=== PATIENT | female | born 1995 | race Caucasian/White ===

== ENCOUNTER 2016-08-18 20:03 | Emergency (ER) | payer OTHER, BC, SELFPAY ==
[2016-08-18 21:02] VITALS: BP 111/56; PULSE 77; O2SAT 99
--- NOTE | 2016-08-18 21:21 | ERPHSYRPT ---
- History of Present Illness Time Seen by Provider: 08/18/16 21:13 Historian: patient Exam Limitations: no limitations Patient Subjective Stated Complaint: pt states she has been having epigastric pain Triage Nursing Assessment: pt alert and oriented, answers questions approp. pt ambulatory with steady gait ntoed. respirations nonlabored with lungs cta. abd soft and nontender with bowel sounds to all 4 quads. Physician History: The patient is a 21-year-old female with her complaining of epigastric pain began this morning. It began before she had breakfast. Later in the day she took a Vicodin from her mother and then she started to have vomiting. She had her gallbladder removed several months ago. She states the pain is similar to what it was when she had gall stones. She also had a done recently and an appendectomy. She denies alcohol consumption. Timing/Duration: today Activities at Onset: none Quality: sharpness Abdominal Pain Onset Location: epigastric Pain Radiation: no radiation Severity of Pain-Max: moderate Severity of Pain-Current: moderate Modifying Factors: Improves With: analgesics, vomiting Associated Symptoms: nausea, vomiting Previous symptoms: same symptoms as today Allergies/Adverse Reactions: No Known Drug Allergies Allergy (Verified 09/11/15 18:43) Home Medications: Ranitidine HCl [Zantac] 150 mg PO DAILY 08/18/16 [History] Hx Tetanus, Diphtheria Vaccination/Date Given: No Hx Influenza Vaccination/Date Given: No Hx Pneumococcal Vaccination/Date Given: No Immunizations Up to Date: No - Review of Systems Constitutional: No Fever, No Chills Eyes: No Symptoms Ears, Nose, & Throat: No Symptoms Respiratory: No Cough, No Dyspnea Cardiac: No Chest Pain, No Edema, No Syncope Abdominal/Gastrointestinal: Abdominal Pain, Nausea, Vomiting, No Diarrhea Genitourinary Symptoms: No Dysuria Musculoskeletal: No Back Pain, No Neck Pain Skin: No Rash Neurological: No Dizziness, No Focal Weakness, No Sensory Changes Psychological: No Symptoms Endocrine: No Symptoms Hematologic/Lymphatic: No Symptoms Immunological/Allergic: No Symptoms All Other Systems: Reviewed and Negative - Past Medical History Pertinent Past Medical History: Yes Neurological History: Migraines ENT History: No Pertinent History Cardiac History: No Pertinent History Respiratory History: No Pertinent History Endocrine Medical History: No Pertinent History Musculoskeletal History: No Pertinent History GI Medical History: No Pertinent History History: No Pertinent History Psycho-Social History: No Pertinent History Female Reproductive Disorders: No Pertinent History Other Medical History: infection during , took daughter at 29 weeks - Past Surgical History Past Surgical History: Yes Gastrointestinal: Appendectomy, Cholecystectomy Female Surgical History: Section - Social History Smoking Status: Never smoker Exposure to second hand smoke: No Drug Use: none Patient Lives Alone: No - Female History Hx Last Menstrual Period: 08/01/16 - Nursing Vital Signs Nursing Vital Signs: Initial Vital Signs Temperature 98.9 F Temperature Source Oral Pulse Rate 77 Respiratory Rate 18 Blood Pressure [Right Arm] 111/56 Pain Intensity 10 - Physical Exam General Appearance: no apparent distress, alert Eye Exam: PERRL/EOMI, eyes nml inspection Ears, Nose, Throat Exam: normal ENT inspection, pharynx normal, moist mucous membranes Neck Exam: normal inspection, non-tender, supple, full range of motion Respiratory Exam: normal breath sounds, lungs clear, No respiratory distress Cardiovascular Exam: regular rate/rhythm, normal heart sounds Gastrointestinal/Abdomen Exam: tenderness (epigastric area) Pelvic Exam: not done Rectal Exam: not done Back Exam: normal inspection, normal range of motion, No CVA tenderness, No vertebral tenderness Extremity Exam: normal inspection, normal range of motion, pelvis stable Neurologic Exam: alert, oriented x 3, cooperative, normal mood/affect, nml cerebellar function, sensation nml, No motor deficits Skin Exam: normal color, warm, dry SpO2 Interpretation: normal SpO2: 99 Oxygen Delivery: Room Air - Radiology Exams Abdomen X-ray Interpretation: Interpreted by me, Negative (neg chest, nonobstructed abd) Ordered Tests: Active Orders 24 hr Category Date Time Status IV Insertion STAT Care 08/18/16 21:24 Active OBSTR/ACUTE ABDOMEN SERIES Stat Exams 08/18/16 21:25 Ordered CBC W DIFF Stat Lab 08/18/16 20:45 Completed CMP Stat Lab 08/18/16 20:45 Completed HCG QUALITATIVE,SERUM Stat Lab 08/18/16 20:45 Completed LIPASE Stat Lab 08/18/16 20:45 Completed Lactic Acid Stat Lab 08/18/16 21:30 Completed UA W/RFX UR CULTURE Stat Lab 08/18/16 20:45 Completed Medication Summary Discontinued Medications Generic Name Dose Route Start Last Admin Trade Name Freq PRN Reason Stop Dose Admin Sodium Chloride 1,000 mls @ 999 mls/hr 08/18/16 21:24 07/05/17 21:31 Sodium Chloride 0.9% 1000 Ml IV 08/18/16 22:24 999 mls/hr .Q1H1M STA Administration Sodium Chloride Confirm 08/18/16 21:29 Sodium Chloride 0.9% 1000 Ml Administered 08/18/16 21:30 Dose 1,000 mls @ ud .ROUTE .STK-MED ONE Ketorolac Tromethamine 30 mg 08/18/16 21:24 08/18/16 21:31 Toradol 30 Mg Injection IV 08/18/16 21:25 30 mg STAT ONE Administration Ketorolac Tromethamine Confirm 08/18/16 21:29 Toradol 30 Mg Injection Administered 08/18/16 21:30 Dose 30 mg .ROUTE .STK-MED ONE Ondansetron HCl 4 mg 08/18/16 21:24 08/18/16 21:31 Zofran 4 Mg/2 Ml Vial IV 08/18/16 21:25 4 mg STAT ONE Administration Ondansetron HCl Confirm 08/18/16 21:29 Zofran 4 Mg/2 Ml Vial Administered 08/18/16 21:30 Dose 4 mg .ROUTE .STK-MED ONE Lab/Rad Data: Laboratory Result Diagrams 08/18/16 20:45 08/18/16 20:45 Laboratory Results 08/18/16 08/18/16 08/18/16 Range/Units 21:30 20:45 20:45 WBC (4.0-10.5) K/mm3 RBC (4.1-5.4) M/mm3 Hgb (12.0-16.0) gm/dl Hct (35-47) % MCV (78-100) fl MCH (26-32) pg MCHC (32-36) g/dl RDW (11.5-14.0) % Plt Count (150-450) K/mm3 MPV (6-9.5) fl Gran % (36.0-66.0) % Lymphocytes % (24.0-44.0) % Monocytes % (0.0-12.0) % Eosinophils % (0.00-5.0) % Basophils % (0.0-0.4) % Basophils # (0-0.4) Sodium (136-145) mEq/L Potassium (3.5-5.1) mEq/L Chloride (98-107) mEq/L Carbon Dioxide (21-32) mEq/L Anion Gap (5-15) MEQ/L BUN (9-20) mg/dL Creatinine (0.55-1.30) mg/dl Estimated GFR ML/MIN Glucose (70-110) MG/DL Lactic Acid 1.8 (0.4-2.0) Calcium (8.5-10.1) mg/dL Total Bilirubin (0.2-1.0) mg/dL AST (15-37) U/L ALT (12-78) U/L Alkaline Phosphatase (46-116) U/L Serum Total Protein (6.4-8.2) gm/dL Albumin (3.4-5.0) g/dL Lipase (73-393) U/L Serum , Qual NEGATIVE (Negative) Ur Collection Type CCMS Urine Color YELLOW (YELLOW) Urine Appearance CLEAR (CLEAR) Urine pH 5.0 (5-6) Ur Specific [place] 1.030 (1.005-1.025) Urine Protein NEGATIVE (Negative) Urine Ketones NEGATIVE (NEGATIVE) Urine Blood NEGATIVE (0-5) Izaiah/ul Urine Nitrite NEGATIVE (NEGATIVE) Urine Bilirubin NEGATIVE (NEGATIVE) Urine Urobilinogen NORMAL (0-1) mg/dL Ur Leukocyte Esterase NEGATIVE (NEGATIVE) Urine Glucose NEGATIVE (NEGATIVE) mg/dL Specimen Received 08-18-16 2145 08/18/16 08/18/16 Range/Units 20:45 20:45 WBC 7.2 (4.0-10.5) K/mm3 RBC 5.35 (4.1-5.4) M/mm3 Hgb 13.1 (12.0-16.0) gm/dl Hct 40.6 (35-47) % MCV 75.9 L (78-100) fl MCH 24.5 L (26-32) pg MCHC 32.3 (32-36) g/dl RDW 15.0 H (11.5-14.0) % Plt Count 258 (150-450) K/mm3 MPV 10.5 H (6-9.5) fl Gran % 76.7 H (36.0-66.0) % Lymphocytes % 15.5 L (24.0-44.0) % Monocytes % 7.7 (0.0-12.0) % Eosinophils % 0.0 (0.00-5.0) % Basophils % 0.1 (0.0-0.4) % Basophils # 0.01 (0-0.4) Sodium 140 (136-145) mEq/L Potassium 4.4 (3.5-5.1) mEq/L Chloride 103 (98-107) mEq/L Carbon Dioxide 28.0 (21-32) mEq/L Anion Gap 13.7 (5-15) MEQ/L BUN 9 (9-20) mg/dL Creatinine 0.82 (0.55-1.30) mg/dl Estimated GFR > 60 ML/MIN Glucose 103 (70-110) MG/DL Lactic Acid (0.4-2.0) Calcium 9.5 (8.5-10.1) mg/dL Total Bilirubin 0.70 (0.2-1.0) mg/dL AST 216 H (15-37) U/L ALT 151 H (12-78) U/L Alkaline Phosphatase 137 H (46-116) U/L Serum Total Protein 7.9 (6.4-8.2) gm/dL Albumin 4.2 (3.4-5.0) g/dL Lipase 138 (73-393) U/L Serum , Qual (Negative) Ur Collection Type Urine Color (YELLOW) Urine Appearance (CLEAR) Urine pH (5-6) Ur Specific [place] (1.005-1.025) Urine Protein (Negative) Urine Ketones (NEGATIVE) Urine Blood (0-5) Izaiah/ul Urine Nitrite (NEGATIVE) Urine Bilirubin (NEGATIVE) Urine Urobilinogen (0-1) mg/dL Ur Leukocyte Esterase (NEGATIVE) Urine Glucose (NEGATIVE) mg/dL Specimen Received - Progress Progress: improved Counseled pt/family regarding: lab results, diagnosis, need for follow-up, rad results - Departure Time of Disposition: 22:30 Departure Disposition: Home Clinical Impression: Abdominal pain, Nausea and vomiting, Elevated liver enzymes Condition: Stable Critical Care Time: No Additional Instructions: You had abdominal pain, nausea vomiting, and elevated liver enzymes. The AST was 216 and your ALT was 151. You were given 1 L of fluids and Zofran 4 mg IV in the ER. Take Zofran 4 mg ODT every 6 hours as needed for nausea and vomiting. Follow up tomorrow with Dr. Johnson for further evaluation of the elevated liver enzymes. Prescriptions: Ondansetron [Zofran Odt] 4 mg PO Q6HPRN PRN #10 tab.rapdis PRN Reason: Nausea/Vomiting
[2016-08-18] MEDS ORDERED: Zofran 4 MG/2 ML VIAL IV ONE (21:24)
[2016-08-18] MEDS ORDERED: Sodium Chloride 0.9% 1000 ML 1,000 ML IV STA (21:24)
[2016-08-18] MEDS ORDERED: TORAdol 30 mg Injection IV ONE (21:24)
[2016-08-18] MEDS ORDERED: Zofran 4 MG/2 ML VIAL ONE (21:29)
[2016-08-18] MEDS ORDERED: TORAdol 30 mg Injection ONE (21:29)
[2016-08-18] MEDS ORDERED: Sodium Chloride 0.9% 1000 ML 1,000 ML ONE (21:29)
[2016-08-18 21:32] LABS: BASOPHIL % 0.1 % (0.0-0.4); Granulocytes % 76.7 % (36.0-66.0); Lymphocytes % 15.5 % (24.0-44.0); Mean Cell Volume 75.9 fl (78-100); Mean Corpuscular Hemoglobin 24.5 pg (26-32); Mean Platelet Volume 10.5 fl (6-9.5); Monocytes % 7.7 % (0.0-12.0); Platelet Count 258 K/mm3 (150-450); Red Blood Count 5.35 M/mm3 (4.1-5.4); White Blood Count 7.2 K/mm3 (4.0-10.5)
[2016-08-18 21:45] LABS: Bilirubin NEGATIVE (NEGATIVE); Blood NEGATIVE Ery/ul (0-5); COMPLETE URINE MICROSCOPIC? NO; Collection Type CCMS; Glucose NEGATIVE (NEGATIVE); Leukocyte Esterase NEGATIVE (NEGATIVE)
[2016-08-18 21:46] LABS: ADD URINE CULTURE? NO (NO)
[2016-08-18 21:50] LABS: ALBUMIN 4.2 g/dL (3.4-5.0); ALKALINE PHOSPHATASE 137 U/L (46-116); ANION GAP 13.7 MEQ/L (5-15); BLOOD UREA NITROGEN 9 mg/dL (9-20); CHLORIDE 103 mEq/L (98-107); Glucose 103 MG/DL (70-110); LIPASE 138 U/L (73-393); Potassium 4.4 mEq/L (3.5-5.1); SGOT/AST 216 U/L (15-37); SGPT/ALT 151 U/L (12-78); SODIUM 140 mEq/L (136-145); Total Protein 7.9 gm/dL (6.4-8.2)
--- NOTE | 2016-08-19 08:32 | XRAY ---
Indication: Right upper quadrant pain and vomiting. Comparison: None 2 views of the abdomen nonacute and nonobstructed with mild scattered colonic fecal debris and cholecystectomy clips. Remaining solid organs and osseous structures unremarkable. Single frontal chest demonstrates normal heart, lungs, and bony thorax. Impression: Mild fecal stasis without obstruction. Normal 1 view chest.
== END 2016-08-18 22:42 | disposition home or self-care (01) ==
LOC: ED 20:03
DX: R10.9 Unspecified abdominal pain (principal); R11.2 Nausea with vomiting, unspecified; R74.8 Abnormal levels of other serum enzymes
CPT/HCPCS: 36000; 36415; 74022; 80053; 81002; 83605; 83690; 84703; 85025; 96360; 96374; 96375; 99283; J1885; J2405

== ENCOUNTER 2016-08-21 02:43 | Emergency (ER) | payer OTHER, BC, SELFPAY ==
[2016-08-21 02:55] VITALS: O2SAT 98
[2016-08-21] MEDS ORDERED: Zofran 4 MG/2 ML VIAL IV ONE ×2 (03:00→04:01)
[2016-08-21] MEDS ORDERED: MORPHINE SULFATE 4 MG INJ IV ONE (03:00)
[2016-08-21] MEDS ORDERED: PROTONIX 40 MG IV IV ONE ×2 (03:00→03:06)
[2016-08-21] MEDS ORDERED: Sodium Chloride 0.9% 1000 ML 1,000 ML IV STA ×2 (03:00→04:55)
[2016-08-21] MEDS ORDERED: Pepcid 20 MG VIAL IV ONE ×2 (03:00→03:06)
[2016-08-21] MEDS ORDERED: GI COCKTAIL 60ML (Belladonn/Phenobarb/Lidoc PO ONE (03:00)
[2016-08-21] MEDS ORDERED: Zofran 4 MG/2 ML VIAL ONE ×2 (03:06→04:01)
[2016-08-21] MEDS ORDERED: MORPHINE SULFATE 4 MG INJ ONE (03:07)
[2016-08-21] MEDS ORDERED: XYLOCAINE HCl Viscous ONE (03:07)
[2016-08-21] MEDS ORDERED: MAALOX ES 30 ML UNIT DOSE ONE (03:08)
[2016-08-21] MEDS ORDERED: Donnatol Liquid ONE (03:08)
[2016-08-21] MEDS ORDERED: Sodium Chloride 0.9% 1000 ML 1,000 ML ONE ×2 (03:08→04:42)
[2016-08-21 03:25] LABS: BASOPHIL % 0.4 % (0.0-0.4); Eosinophil % 1.2 % (0.00-5.0); Lymphocytes % 26.5 % (24.0-44.0); Mean Cell Volume 75.8 fl (78-100); Mean Corpuscular Hemoglobin 24.6 pg (26-32); Mean Platelet Volume 10.7 fl (6-9.5); Monocytes % 11.9 % (0.0-12.0); Platelet Count 257 K/mm3 (150-450); Red Blood Count 5.32 M/mm3 (4.1-5.4); Red Cell Distribution Width 15.1 % (11.5-14.0); White Blood Count 4.9 K/mm3 (4.0-10.5)
[2016-08-21 03:50] LABS: ALBUMIN 3.9 g/dL (3.4-5.0); ALKALINE PHOSPHATASE 286 U/L (46-116); ANION GAP 16.6 MEQ/L (5-15); BLOOD UREA NITROGEN 9 mg/dL (9-20); CHLORIDE 103 mEq/L (98-107); Carbon Dioxide 24.1 mEq/L (21-32); Glucose 103 MG/DL (70-110); Potassium 3.9 mEq/L (3.5-5.1); SGOT/AST 463 U/L (15-37); SGPT/ALT 741 U/L (12-78); SODIUM 140 mEq/L (136-145); Total Protein 7.7 gm/dL (6.4-8.2)
--- NOTE | 2016-08-21 04:06 | ERPHSYRPT ---
- History of Present Illness Time Seen by Provider: 08/21/16 04:04 Historian: patient, family Exam Limitations: no limitations Patient Subjective Stated Complaint: pt was seen in the er on 08/18 for upper abd pain followed up with dr perkins and then to see dr bruno she is to have a scope done on 08/27 but tonight she can't take the pain -she hasn't been able to eat since yesterday at 0300 and when she did she was nauseated -the pain feels like it did before she had her gallbladder removed no fever Triage Nursing Assessment: pt is awake and alert and able to answer questions crying with the pain Physician History: pt was seen in the er on 08/18 for upper abd pain followed up with dr perkins and then to see dr bruno she is to have a scope done on 08/27 but tonight she can't take the pain -she hasn't been able to eat since yesterday at 0300 and when she did she was nauseated -the pain feels like it did before she had her gallbladder removed no fever Timing/Duration: today Abdominal Pain Onset Location: epigastric Pain Radiation: no radiation Severity of Pain-Max: severe Severity of Pain-Current: severe Modifying Factors: Improves With: nothing Associated Symptoms: denies symptoms Previous symptoms: same symptoms as today Allergies/Adverse Reactions: No Known Drug Allergies Allergy (Verified 08/21/16 03:11) Home Medications: Ranitidine HCl [Zantac] 150 mg PO DAILY 08/18/16 [History] Hx Tetanus, Diphtheria Vaccination/Date Given: No Hx Influenza Vaccination/Date Given: No Hx Pneumococcal Vaccination/Date Given: No - Review of Systems Constitutional: No Fever, No Chills Eyes: No Symptoms Ears, Nose, & Throat: No Symptoms Respiratory: No Cough, No Dyspnea Cardiac: No Chest Pain, No Edema, No Syncope Abdominal/Gastrointestinal: Abdominal Pain, No Nausea, No Vomiting, No Diarrhea Genitourinary Symptoms: No Dysuria Musculoskeletal: No Back Pain, No Neck Pain Skin: No Rash Neurological: No Dizziness, No Focal Weakness, No Sensory Changes Psychological: No Symptoms Endocrine: No Symptoms All Other Systems: Reviewed and Negative - Past Medical History Pertinent Past Medical History: Yes Neurological History: Migraines ENT History: No Pertinent History Cardiac History: No Pertinent History Respiratory History: No Pertinent History Endocrine Medical History: No Pertinent History Musculoskeletal History: No Pertinent History GI Medical History: No Pertinent History History: No Pertinent History Psycho-Social History: No Pertinent History Female Reproductive Disorders: No Pertinent History Other Medical History: infection during , took daughter at 29 weeks - Past Surgical History Past Surgical History: Yes Gastrointestinal: Appendectomy, Cholecystectomy Female Surgical History: Section - Social History Smoking Status: Never smoker Exposure to second hand smoke: No Drug Use: none Patient Lives Alone: No - Female History Hx Last Menstrual Period: 08/01 - Nursing Vital Signs Nursing Vital Signs: Initial Vital Signs Temperature 98.5 F Temperature Source Oral Pulse Rate 82 Respiratory Rate 16 Blood Pressure [Right Arm] 114/64 Pain Intensity 6 - Physical Exam General Appearance: no apparent distress, alert Eye Exam: PERRL/EOMI, eyes nml inspection Ears, Nose, Throat Exam: normal ENT inspection, pharynx normal, moist mucous membranes Neck Exam: normal inspection, non-tender, supple, full range of motion Respiratory Exam: normal breath sounds, lungs clear, No respiratory distress Cardiovascular Exam: regular rate/rhythm, normal heart sounds Gastrointestinal/Abdomen Exam: soft, tenderness (epigastric), No mass Back Exam: normal inspection, normal range of motion, No CVA tenderness, No vertebral tenderness Extremity Exam: normal inspection, normal range of motion, pelvis stable Neurologic Exam: alert, oriented x 3, cooperative, normal mood/affect, nml cerebellar function, sensation nml, No motor deficits Skin Exam: normal color, warm, dry SpO2: 98 Oxygen Delivery: Room Air - Course Nursing assessment & vital signs reviewed: Yes Ordered Tests: Active Orders 24 hr Category Date Time Status IV Insertion STAT Care 08/21/16 03:56 Active ABDOMEN AND PELVIS W CONTRAST [CT] Stat Exams 08/21/16 04:29 Ordered AMYLASE Stat Lab 08/21/16 03:15 Completed CBC W DIFF Stat Lab 08/21/16 03:15 Completed CMP Stat Lab 08/21/16 03:15 Completed HCG QUALITATIVE,SERUM Stat Lab 08/21/16 03:15 Completed LIPASE Stat Lab 08/21/16 03:15 Completed Medication Summary Discontinued Medications Generic Name Dose Route Start Last Admin Trade Name Freq PRN Reason Stop Dose Admin Al Hydrox/Mg Hydrox/Simethicone Confirm 08/21/16 03:08 Maalox Es 30 Ml Unit Dose Administered 08/21/16 03:09 Dose 30 ml .ROUTE .STK-MED ONE Belladonna Alkaloids/Phenobarbital 60 ml 08/21/16 03:00 08/21/16 03:18 Gi Cocktail 60ml (Belladonn/Phenobarb/Lidoc* PO 08/21/16 03:01 60 ml STAT ONE Administration Belladonna Alkaloids/Phenobarbital Confirm 08/21/16 03:08 Donnatol Liquid Administered 08/21/16 03:09 Dose 64.8 mg .ROUTE .STK-MED ONE Famotidine 20 mg 08/21/16 03:00 08/21/16 03:17 Pepcid 20 Mg Vial IV 08/21/16 03:01 20 mg STAT ONE Administration Famotidine Confirm 08/21/16 03:06 Pepcid 20 Mg Vial Administered 08/21/16 03:07 Dose 20 mg IV .STK-MED ONE Fentanyl Citrate 50 mcg 08/21/16 04:33 08/21/16 04:38 Sublimaze 100 Mcg/2 Ml IV 08/21/16 04:34 50 mcg STAT ONE Administration Fentanyl Citrate Confirm 08/21/16 04:34 Sublimaze 100 Mcg/2 Ml Administered 08/21/16 04:35 Dose 100 mcg .ROUTE .STK-MED ONE Sodium Chloride 1,000 mls @ 999 mls/hr 08/21/16 03:00 08/21/16 03:17 Sodium Chloride 0.9% 1000 Ml IV 08/21/16 04:00 999 mls/hr .Q1H1M STA Administration Sodium Chloride Confirm 08/21/16 03:08 Sodium Chloride 0.9% 1000 Ml Administered 08/21/16 03:09 Dose 1,000 mls @ ud .ROUTE .STK-MED ONE Lidocaine HCl Confirm 08/21/16 03:07 Xylocaine Hcl Viscous * Administered 08/21/16 03:08 Dose 20 ml .ROUTE .STK-MED ONE Morphine Sulfate 4 mg 08/21/16 03:00 08/21/16 03:17 Morphine Sulfate 4 Mg Inj IV 08/21/16 03:01 4 mg STAT ONE Administration Morphine Sulfate Confirm 08/21/16 03:07 Morphine Sulfate 4 Mg Inj Administered 08/21/16 03:08 Dose 4 mg .ROUTE .STK-MED ONE Ondansetron HCl 4 mg 08/21/16 03:00 08/21/16 03:17 Zofran 4 Mg/2 Ml Vial IV 08/21/16 03:01 4 mg STAT ONE Administration Ondansetron HCl Confirm 08/21/16 03:06 Zofran 4 Mg/2 Ml Vial Administered 08/21/16 03:07 Dose 4 mg .ROUTE .STK-MED ONE Ondansetron HCl 4 mg 08/21/16 04:01 08/21/16 04:03 Zofran 4 Mg/2 Ml Vial IV 08/21/16 04:02 4 mg STAT ONE Administration Ondansetron HCl Confirm 08/21/16 04:01 Zofran 4 Mg/2 Ml Vial Administered 08/21/16 04:02 Dose 4 mg .ROUTE .STK-MED ONE Pantoprazole Sodium 40 mg 08/21/16 03:00 08/21/16 03:17 Protonix 40 Mg Iv IV 08/21/16 03:01 40 mg STAT ONE Administration Pantoprazole Sodium Confirm 08/21/16 03:06 Protonix 40 Mg Iv Administered 08/21/16 03:07 Dose 40 mg IV .STK-MED ONE Lab/Rad Data: Laboratory Result Diagrams 08/21/16 03:15 08/21/16 03:15 Laboratory Results 08/21/16 08/21/16 08/21/16 Range/Units 03:15 03:15 03:15 WBC 4.9 (4.0-10.5) K/mm3 RBC 5.32 (4.1-5.4) M/mm3 Hgb 13.1 (12.0-16.0) gm/dl Hct 40.3 (35-47) % MCV 75.8 L (78-100) fl MCH 24.6 L (26-32) pg MCHC 32.5 (32-36) g/dl RDW 15.1 H (11.5-14.0) % Plt Count 257 (150-450) K/mm3 MPV 10.7 H (6-9.5) fl Gran % 60.0 (36.0-66.0) % Lymphocytes % 26.5 (24.0-44.0) % Monocytes % 11.9 (0.0-12.0) % Eosinophils % 1.2 (0.00-5.0) % Basophils % 0.4 (0.0-0.4) % Basophils # 0.02 (0-0.4) Sodium 140 (136-145) mEq/L Potassium 3.9 (3.5-5.1) mEq/L Chloride 103 (98-107) mEq/L Carbon Dioxide 24.1 (21-32) mEq/L Anion Gap 16.6 H (5-15) MEQ/L BUN 9 (9-20) mg/dL Creatinine 1.04 (0.55-1.30) mg/dl Estimated GFR > 60 ML/MIN Glucose 103 (70-110) MG/DL Calcium 9.3 (8.5-10.1) mg/dL Total Bilirubin 3.10 H (0.2-1.0) mg/dL AST 463 H (15-37) U/L ALT 741 H (12-78) U/L Alkaline Phosphatase 286 H (46-116) U/L Serum Total Protein 7.7 (6.4-8.2) gm/dL Albumin 3.9 (3.4-5.0) g/dL Amylase 1104 H (25-115) U/L Lipase 20754 H (73-393) U/L Serum , Qual NEGATIVE (Negative) - Progress Progress: improved, pain not gone completely Counseled pt/family regarding: lab results, diagnosis, need for follow-up - Departure Time of Disposition: 04:42 Departure Disposition: Transfer ([facility]) Clinical Impression: Elevated liver enzymes, Pancreatitis due to biliary obstruction Abdominal pain Qualifiers: Abdominal location: epigastric Qualified Code(s): R10.13 - Epigastric pain Condition: Stable Critical Care Time: Yes Critical Care Time(excluding separately billable procedures): 30-74 minutes Referrals: AIXA PERKINS [Primary Care Provider] -
[2016-08-21] MEDS ORDERED: SUBLIMAZE 100 MCG/2 ML IV ONE (04:33)
[2016-08-21] MEDS ORDERED: SUBLIMAZE 100 MCG/2 ML ONE (04:34)
[2016-08-21 04:36] LABS: LIPASE 26105 U/L (73-393)
[2016-08-21] MEDS ORDERED: Phenergan 25 MG INJ IM ONE (05:17)
[2016-08-21] MEDS ORDERED: Phenergan 25 MG INJ ONE (05:20)
[2016-08-21 06:00] VITALS: BP 128/78; PULSE 72
--- NOTE | 2016-08-21 07:01 | XRAY ---
Indication: Abdomen pain. Elevated bilirubin, lipase, and amylase. Multiple contiguous images obtained through the abdomen and pelvis using 80 cc Isovue 370 contrast only. Comparison: None Lung bases are clear. Heart is not enlarged. Pancreas is diffusely prominent and edematous with mild peripancreatic stranding consistent with acute pancreatitis. There is moderate peripancreatic fluid with tiny fluid in the left colic gutter. Spleen is enlarged measuring 14 cm in greatest axial dimension. Previous cholecystectomy with mild biliary tree prominence. There is a 2 cm collapsing left ovary cyst with small cul-de-sac fluid. Noncontrasted stomach and bowel loops appear nonobstructed. Previous reported appendectomy. Remaining liver, spleen, adrenal glands, kidneys, ureters, uterus, and aorta appear unremarkable. No pathologic retroperitoneal lymphadenopathy. Osseous structures intact. Impression: 1. CT findings consistent with acute pancreatitis. Reactive free fluid but no walled off fluid collection. 2. Collapsing left ovary cyst with cul-de-sac fluid. 3. Incidental splenomegaly. Comment: Preliminary interpretation was made by [facility]. No discrepancy. CTDI 10.93
== END 2016-08-21 05:30 | disposition short-term general hospital (02) ==
LOC: ED 02:43
DX: R74.8 Abnormal levels of other serum enzymes (principal); K86.1 Other chronic pancreatitis; K83.1 Obstruction of bile duct; R10.13 Epigastric pain
CPT/HCPCS: 36000; 36415; 74177; 80053; 82150; 83690; 84703; 85025; 96360; 96361; 96372; 96374; 96375; 96376; 99285; J2270; J2405; J2550; J3010; A9270-GY

== ENCOUNTER 2017-02-18 00:18 | Observation (INO) | payer OTHER ==
[2017-02-18 00:54] LABS: Amourphous Crystal MODERATE /HPF (NEGATIVE); Amphetamine,Urine NEG. (NEGATIVE); Appearance SLIGHTLY CLOUDY (CLEAR); Bacteria MANY /HPF (NEGATIVE); Barbiturate,Urine NEG. (NEGATIVE); Benzodiazepine,Urine NEG. (NEGATIVE); Bilirubin NEGATIVE (NEGATIVE); Blood 50 Ery/ul (0-5); Cocaine,Urine NEG. (NEGATIVE); Epithelial Cells MODERATE /HPF (FEW); Glucose NEGATIVE (NEGATIVE); Ketones NEGATIVE (NEGATIVE); Leukocyte Esterase 2+ (NEGATIVE); Methadone,Urine NEG. (NEGATIVE); Nitrite NEGATIVE (NEGATIVE); Opiate,Urine NEG. (NEGATIVE); PCP,Urine NEG. (NEGATIVE); Protein,Urine Dip NEGATIVE (Negative); THC,Urine NEG. (NEGATIVE); Urobilinogen NORMAL mg/dL (0-1); WBC 15-25 /HPF (0-5)
[2017-02-18] MEDS: PROCARDIA 10 MG PO PRN ×2 (01:58→02:24)
[2017-02-18] MEDS ORDERED: Lactated Ringers 1,000 ML IV ONE (01:59)
[2017-02-18] MEDS ORDERED: Celestone Soluspan 6MG/ML IM ONE (02:06)
[2017-02-18 02:49] LABS: BASOPHIL % 0.1 % (0.0-0.4); Basophil (Absolute #) 0.01 (0-0.4); Eosinophil % 0.7 % (0.00-5.0); Eosinophil (Absolute #) 0.07 (0-0.5); Granulocyte Absolute (ANC) 6.64 (1.4-6.9); Granulocytes % 66.1 % (36.0-66.0); Hematocrit 34.5 % (35-47); Hemoglobin 11.1 gm/dl (12.0-16.0); Lymphocyte (Absolute #) 2.36 (1.0-4.6); Lymphocytes % 23.5 % (24.0-44.0); Mean Cell Volume 78.4 fl (78-100); Mean Corpuscular Hemoglobin 25.2 pg (26-32); Mean Corpuscular Hgb Concent. 32.2 g/dl (32-36); Monocyte (Absolute #) 0.96 (0.0-1.3); Monocytes % 9.6 % (0.0-12.0); Platelet Count 261 K/mm3 (150-450); Red Cell Distribution Width 14.6 % (11.5-14.0)
[2017-02-18] MEDS: BRETHINE 1 MG/ML SQ PRN ×4 (02:55→06:05)
[2017-02-18] MEDS ORDERED: PITOCIN 30 UNITS/ LR 500 ML 500 ML IV SCH (03:00)
[2017-02-18 03:16] LABS: ALBUMIN 2.8 g/dL (3.4-5.0); ALKALINE PHOSPHATASE 81 U/L (46-116); ANION GAP 14.5 MEQ/L (5-15); BLOOD UREA NITROGEN 6 mg/dL (9-20); CHLORIDE 104 mEq/L (98-107); Calcium 8.9 mg/dL (8.5-10.1); Carbon Dioxide 23.6 mEq/L (21-32); Creatinine 1 0.62 mg/dl (0.55-1.30); EST GLOMERULAR FILTRATION RATE > 60 ML/MIN; Glucose 87 MG/DL (70-110); Potassium 3.8 mEq/L (3.5-5.1); SGOT/AST 18 U/L (15-37); SGPT/ALT 13 U/L (12-78); SODIUM 138 mEq/L (136-145); Total Protein 7.3 gm/dL (6.4-8.2)
[2017-02-18] MEDS: Lactated Ringers 1,000 ML IV SCH ×2 (03:35→14:11)
[2017-02-18] MEDS ORDERED: Magnesium Sulfate 40 Gm/1000 Ml H2O Premix*** 1,000 ML IV SCH (08:00)
[2017-02-18] MEDS ORDERED: Lactated Ringers 1,000 ML IV SCH (08:00)
[2017-02-18 08:56] LABS: INR 1.02 (0.8-3.0)
[2017-02-18 08:58] LABS: PTT 26.9 SECONDS (25.3-37.0)
--- NOTE | 2017-02-18 09:21 | XRAY ---
Indication: Cervical length. Limited OB ultrasound performed to evaluate cervical length. Cervix is closed and measures 3.3 cm in length.
[2017-02-18] MEDS ORDERED: ROCEPHIN 1 Gm-D5w 50 ml Bag** 1 G/50 ML IVPB IV SCH (10:00)
[2017-02-18] MEDS ORDERED: TYLENOL 325 MG PO PRN (13:45)
[2017-02-18 13:47] VITALS: O2SAT 98
[2017-02-18 18:19] VITALS: BP 115/66; PULSE 104
== END 2017-02-18 18:25 | disposition short-term general hospital (02) ==
LOC: OB 00:18
PROVIDERS: ADMIT Family Medicine; ATTEND Family Medicine
DX: O60.02 Preterm labor without delivery, second trimester (principal); O23.42 Unspecified infection of urinary tract in pregnancy, second trimester; Z3A.24 24 weeks gestation of pregnancy
CPT/HCPCS: 36415; 76815; 80053; 80307; 81000; 83735; 85025; 85610; 85730; 87086; G0378; J0696; J0702; A9270-GY

== ENCOUNTER 2017-03-18 12:13 | Observation (INO) | payer OTHER ==
[2017-03-18 12:57] VITALS: BP 106/56; PULSE 82
== END 2017-03-18 14:20 | disposition home or self-care (01) ==
LOC: OB 12:13
PROVIDERS: ADMIT Family Medicine; ATTEND Family Medicine
DX: Z34.83 Encounter for supervision of other normal pregnancy, third trimester (principal)
CPT/HCPCS: 59025; 87086; G0378

== ENCOUNTER 2017-04-19 01:11 | Observation (INO) | payer OTHER ==
[2017-04-19 02:44] LABS: Appearance HAZY (CLEAR); Bacteria MANY /HPF (NEGATIVE); Bilirubin NEGATIVE (NEGATIVE); Blood TRACE NON-HEM Ery/ul (0-5); Epithelial Cells MODERATE /HPF (FEW); Glucose NEGATIVE (NEGATIVE); Ketones NEGATIVE (NEGATIVE); Leukocyte Esterase 2+ (NEGATIVE); Mucus SLIGHT /HPF (NEGATIVE); Nitrite NEGATIVE (NEGATIVE); Protein,Urine Dip NEGATIVE (Negative); Urobilinogen NORMAL mg/dL (0-1); WBC 25-50 /HPF (0-5)
[2017-04-19] MEDS ORDERED: Lactated Ringers 1,000 ML IV ONE (04:52)
[2017-04-19] MEDS ORDERED: BRETHINE 1 MG/ML SQ ONE (04:52)
[2017-04-19] MEDS ORDERED: ROCEPHIN 1 Gm-D5w 50 ml Bag** 1 G/50 ML IVPB IV ONE (04:58)
[2017-04-19] MEDS ORDERED: ROCEPHIN 1 Gm-D5w 50 ml Bag** 1 G/50 ML IVPB IV SCH ×3 (05:02→22:00)
[2017-04-19] MEDS ORDERED: Zofran 4 MG/2 ML VIAL IV PRN (07:31)
[2017-04-19] MEDS ORDERED: Lactated Ringers 1,000 ML IV SCH (08:00)
[2017-04-19] MEDS ORDERED: PROCARDIA 10 MG PO SCH (08:15)
--- NOTE | 2017-04-19 11:07 | XRAY ---
Indication: Follow-up renal pelvic prominence. 2-dimensional OB ultrasound performed. Comparison: March 15, 2017. Again there is a single viable intrauterine in cephalic presentation. heart rate 162 BPM. Normal three-vessel cord and cord insertion previously documented. Previous bilateral renal pelvic prominence has resolved. Visualized stomach and bladder are unremarkable. Placenta remains anterior without abruption/previa. Cervical length measures 3.2 cm. BPD measures 8.59 cm corresponding to 34 weeks 4 days. HC measures 31.14 cm corresponding to 34 weeks 6 days. AC measures 30.40 cm corresponding to 34 weeks 3 days. FL measures 6.51 cm corresponding to 33 weeks 4 days. SHIMA is 22 cm. Impression: Again single viable intrauterine with mean gestational age 34 weeks 3 days. Normal progression of . Previous renal pelvic prominence has resolved.
[2017-04-19 12:44] VITALS: BP 103/59; PULSE 96
== END 2017-04-19 14:25 | disposition home or self-care (01) ==
LOC: OB 01:11
PROVIDERS: ADMIT Family Medicine; ATTEND Family Medicine
DX: Z34.83 Encounter for supervision of other normal pregnancy, third trimester (principal)
CPT/HCPCS: 76805; 81000; 87086; G0378; J0696; J2405; A9270-GY

== ENCOUNTER 2017-04-27 10:43 | Observation (INO) | payer OTHER ==
[2017-04-27 13:23] VITALS: BP 104/63; PULSE 90
== END 2017-04-27 12:25 | disposition home or self-care (01) ==
LOC: MED SURG 10:43
PROVIDERS: ADMIT Family Medicine; ATTEND Family Medicine
DX: Z34.83 Encounter for supervision of other normal pregnancy, third trimester (principal)
CPT/HCPCS: 59025; G0378

== ENCOUNTER 2017-04-29 14:36 | Observation (INO) | payer OTHER ==
[2017-04-29] MEDS ORDERED: Lactated Ringers 1,000 ML IV ONE (15:44)
[2017-04-29 15:59] LABS: Appearance CLOUDY (CLEAR); Leukocyte Esterase LARGE (NEGATIVE); Nitrite NEGATIVE (NEGATIVE); Protein,Urine Dip TRACE (Negative); Specific Gravity 1.015 (1.005-1.025)
[2017-04-29 16:00] LABS: Bacteria MANY /HPF (NEGATIVE); Bilirubin NEGATIVE (NEGATIVE); Blood TRACE HEMOLYZED Ery/ul (0-5); CALCIUM OXALATE CRYSTALS 0-2 /HPF (NEGATIVE); Epithelial Cells PACKED /HPF (FEW); Glucose 50 mg/dL (NEGATIVE); Ketones NEGATIVE (NEGATIVE); Urobilinogen NORMAL mg/dL (0-1); WBC >100 /HPF (0-5)
[2017-04-29 19:08] VITALS: BP 132/63; PULSE 83
== END 2017-04-29 18:35 | disposition home or self-care (01) ==
LOC: UNDOADMOB 14:36 → OB 14:36 → UNDODISOB 18:35
PROVIDERS: ADMIT Family Medicine; ATTEND Family Medicine
DX: Z34.83 Encounter for supervision of other normal pregnancy, third trimester (principal)
CPT/HCPCS: 81000; G0378

== ENCOUNTER 2019-02-21 18:11 | Emergency (ER) | payer OTHER ==
--- NOTE | 2019-02-21 19:25 | ERPHSYRPT ---
- History of Present Illness Time Seen by Provider: 02/21/19 19:15 Source: patient Exam Limitations: no limitations Patient Subjective Stated Complaint: pt here for painful urination for a few days and also states she has broke out with blisters on her vagina, no fever, fowel smelling urine Triage Nursing Assessment: pt alert, walked in, resp easy, skin w/d/p. no edema noted, yellow cloudy looking Physician History: 23 y/o white female, last sexually active with her ex on cynthia, presents with dysuria, urgency and genital blisters. first dysuria then painful blister outbreak 2 days ago. she denies ever having herpes before. denies sex of any kind with anyone other than her . no fever, no abnl vag discharge. she is not aware her having genital blisters. Timing/Duration: day(s) (2) Activites at Onset: none Quality: burning Onset Location: other (genital) Pain Radiation: none Severity of Pain-Max: mild Severity of Pain-Current: mild Prior abdominal problems: none Sexual intercourse history: non-contributory, single partner Modifying Factors: Improves With: nothing Associated Symptoms: dysuria, urinary frequency Allergies/Adverse Reactions: No Known Drug Allergies Allergy (Verified 02/21/19 18:27) Hx Tetanus, Diphtheria Vaccination/Date Given: No Hx Influenza Vaccination/Date Given: No Hx Pneumococcal Vaccination/Date Given: No - Review of Systems Constitutional: No Symptoms Eyes: No Symptoms Ears, Nose, & Throat: No Symptoms Respiratory: No Symptoms Cardiac: No Symptoms Abdominal/Gastrointestinal: No Symptoms Genitourinary Symptoms: Dysuria, Urgency, Other (genital blisters) Musculoskeletal: No Symptoms Skin: No Symptoms Neurological: No Symptoms Psychological: No Symptoms Endocrine: No Symptoms Hematologic/Lymphatic: No Symptoms Immunological/Allergic: No Symptoms All Other Systems: Reviewed and Negative - Past Medical History Pertinent Past Medical History: Yes Neurological History: Migraines ENT History: No Pertinent History Cardiac History: No Pertinent History Respiratory History: No Pertinent History Endocrine Medical History: No Pertinent History Musculoskeletal History: No Pertinent History GI Medical History: No Pertinent History History: No Pertinent History Psycho-Social History: No Pertinent History Female Reproductive Disorders: No Pertinent History Other Medical History: infection during , took daughter at 29 weeks - Past Surgical History Past Surgical History: Yes Gastrointestinal: Appendectomy, Cholecystectomy Female Surgical History: Section, Tubal Ligation - Social History Smoking Status: Never smoker Exposure to second hand smoke: No Drug Use: none Patient Lives Alone: No - Female History Hx Last Menstrual Period: dec Hx Now: No - Nursing Vital Signs Nursing Vital Signs: Initial Vital Signs Temperature 96.8 F 02/21/19 18:26 Pulse Rate 85 02/21/19 18:26 Respiratory Rate 18 02/21/19 18:26 Blood Pressure 125/79 02/21/19 18:26 O2 Sat by Pulse Oximetry 98 02/21/19 18:26 Pain Scale Pain Intensity 8 - Physical Exam General Appearance: no apparent distress, alert, anxiety Eye Exam: PERRL/EOMI, eyes nml inspection Ears, Nose, Throat Exam: normal ENT inspection, moist mucous membranes Neck Exam: normal inspection, non-tender, supple, full range of motion Respiratory Exam: No chest tenderness Gastrointestinal/Abdomen Exam: No tenderness Pelvic Exam: other (external exam reveal several punctate reddened, tender blisters. 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 nml as tested Skin Exam: normal color, warm, dry, other (see above) Lymphatic Exam: No adenopathy SpO2 Interpretation: normal SpO2: 98 O2 Delivery: Room Air Ordered Tests: Active Orders 24 hr Category Date Time Status CULTURE,URINE Stat Lab 02/21/19 20:12 Received HCG,QUALITATIVE URINE Stat Lab 02/21/19 20:12 Completed UA W/RFX UR CULTURE Stat Lab 02/21/19 20:12 Completed Medication Summary Generic Name Dose Route Start Last Admin Trade Name Freq PRN Reason Stop Dose Admin Acyclovir 400 mg 02/21/19 20:23 Zovirax 200 Mg PO 02/21/19 20:24 STAT ONE Ceftriaxone Sodium 1,000 mg 02/21/19 20:22 Rocephin 1000 Mg Inj IM 02/21/19 20:23 STAT ONE Trimethoprim/Sulfamethoxazole 1 tab 02/21/19 20:22 Bactrim Ds Tablet PO 02/21/19 20:23 STAT ONE Lab/Rad Data: Laboratory Results 02/21/19 02/21/19 Range/Units 20:12 20:12 Urine Color DORI (YELLOW) Urine Appearance CLOUDY (CLEAR) Urine pH 5.0 (5-6) Ur Specific Lamont 1.026 (1.005-1.025) Urine Protein 100 (Negative) Urine Ketones TRACE (NEGATIVE) Urine Blood LARGE (0-5) Izaiah/ul Urine Nitrite POSITIVE (NEGATIVE) Urine Bilirubin NEGATIVE (NEGATIVE) Urine Urobilinogen 2 (0-1) mg/dL Ur Leukocyte Esterase LARGE (NEGATIVE) Urine WBC (Auto) >100 (0-5) /HPF Urine RBC (Auto) >101 (0-2) /HPF U Epithel Cells (Auto) RARE (FEW) /HPF Urine Bacteria (Auto) NONE (NEGATIVE) /HPF Urine Mucus (Auto) MANY (NEGATIVE) /HPF Urine Culture Reflexed YES (NO) Urine Glucose NEGATIVE (NEGATIVE) mg/dL Urine HCG, Qual NEGATIVE (Negative) - Progress Progress: unchanged Air Movement: good Antibiotics given: Yes Counseled pt/family regarding: lab results, diagnosis, need for follow-up - Departure Departure Disposition: Home Clinical Impression: Genital herpes Condition: Stable Critical Care Time: No Additional Instructions: keep area clean daily with soap and water. use ibuprofen and tylenol for pain. follow up with primary doctor or twister hand for further management. do not engage in any type of sex until you have completed all your medications and there are no further blisters and no pain Prescriptions: Acyclovir 400 mg PO TID #30 tablet Smz/Tmp Ds Tablet [Bactrim Ds Tablet] 1 udtab PO BID #14 tablet
[2019-02-21 20:17] LABS: Appearance CLOUDY (CLEAR); Bilirubin NEGATIVE (NEGATIVE); Blood LARGE Ery/ul (0-5); Epithelial Cells RARE /HPF (FEW); Glucose NEGATIVE (NEGATIVE); Ketones TRACE (NEGATIVE); Leukocyte Esterase LARGE (NEGATIVE); Mucus MANY /HPF (NEGATIVE); Nitrite POSITIVE (NEGATIVE); Protein,Urine Dip 100 (Negative); Specific Gravity 1.026 (1.005-1.025); Urobilinogen 2 mg/dL (0-1); WBC >100 /HPF (0-5)
[2019-02-21 20:20] LABS: RBC >101 /HPF (0-2)
[2019-02-21] MEDS ORDERED: BACTRIM DS TABLET PO ONE ×2 (20:22→20:28)
[2019-02-21] MEDS ORDERED: Rocephin 1000 MG INJ IM ONE (20:22)
[2019-02-21] MEDS ORDERED: ZOVIRAX 200 MG PO ONE (20:23)
[2019-02-21] MEDS ORDERED: ZOVIRAX 200 MG ONE (20:28)
[2019-02-21] MEDS ORDERED: Rocephin 1000 MG INJ ONE (20:29)
[2019-02-21 20:41] VITALS: BP 126/68; PULSE 75; O2SAT 99
== END 2019-02-21 20:57 | disposition home or self-care (01) ==
LOC: ED 18:11
DX: A60.00 Herpesviral infection of urogenital system, unspecified (principal)
CPT/HCPCS: 81001; 84703; 87077; 87086; 87186; 96372; 99284; J0696; A9270-GY